=== PATIENT | female | born 1975 | race Caucasian/White ===

== ENCOUNTER 2016-05-24 09:09 | Emergency (ER) | payer OTHER ==
[~2016-05-24] VITALS: Ht 172.7 cm; Wt 72.6 kg
[~2016-05-24 09:09] MED LIST: MOTRIN600 MG PO; NORCO 5-325 TA1 EACH PO; PROTONIX 40MG T40 MG PO; TRAZODONE50 MG PO; VICODIN5-300 PO; XANAX0.5 MG PO
--- NOTE | 2016-05-24 10:13 | ED HAND/WRIST INJURY COMPLAINT ---
History of Present Illness General Chief Complaint: Hand or Wrist Injury Stated Complaint: R WRIST INJURY Source: patient Exam Limitations: no limitations Vital Signs & Intake/Output Vital Signs & Intake/Output Vital Signs Date Time Temp Pulse Resp B/P Pulse O2 O2 Flow FiO2 Ox Delivery Rate 05/24 1100 96 Room Air 05/24 0921 98.7 78 18 144/90 98 Room Air Allergies Coded Allergies: No Known Allergies (01/29/16) Reconcile Medications No Known Home Medications Triage Note: PT STATES THAT WHILE DOING DISHES LAST PM SHE TURNED HER WRIST AND HAS BEEN HAVING SHARP APIN SINCE. PT REFUSES MEDS AT TRIAGE Triage Nurses Notes Reviewed? yes : No Patient currently breastfeeds: No HPI: Patient presents for evaluation of a right wrist injury that occurred yesterday at home while wiping her counter. It is a constant throbbing pain gets worse with movement. Apparent soft tissue swelling or ecchymoses. Patient has yet to try any medications for this. She also feels a generalized numbness and tingling to the right hand. Patient has a distant history of carpal tunnel surgery of the left hand. The patient contacted her orthopedic doctor's office and was told to go to the emergency department. Past History Travel History Traveled to [facility] past 21 day No Medical History Any Pertinent Medical History? 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 grandmother, , Age 60+; Cause: Myocardial infarction. Hx Contributory? No Review of Systems Review of Systems Constitutional: Reports: no symptoms. EENTM: Reports: no symptoms. Respiratory: Reports: no symptoms. Cardiovascular: Reports: no symptoms. GI: Reports: no symptoms. Genitourinary: Reports: no symptoms. Musculoskeletal: Reports: see HPI. Skin: Reports: no symptoms. Neurological/Psychological: Reports: no symptoms. Hematologic/Endocrine: Reports: no symptoms. Immunologic/Allergic: Reports: no symptoms. All Other Systems: Reviewed and Negative Physical Exam Physical Exam Hand Left: normal inspection Hand Right: SEE BELOW Comments: Gen.: Well-nourished, well-developed, no acute respiratory distress. Head: Normocephalic, atraumatic. Eyes: Normal inspection bilaterally Ears: Normal inspection bilaterally Nose: Normal inspection, nasal cannula in place Throat/mouth : Moist mucosa Neck: Supple, full range of motion, no goiter Heart: Regular rate and rhythm Lungs: Quiet respirations Back: Normal range of motion Extremities: Right hand and wrist: No soft tissue swelling ecchymoses or deformity, sensation intact to light touch, good capillary refill to all fingertips, tenderness over the distal wrist (ulnar aspect), decreased range of motion of the wrist due to pain. No apparent abrasions. Neurologic: Cranial nerves grossly intact, speech is clear Skin: warm and dry Psychiatric: Calm, cooperative, no apparent delusions or hallucinations Progress Differential Diagnosis: contusion, dislocation, fracture, sprain Plan of Care: Orders Procedure Date/time Status Durable Medical Equipment 05/24 1158 Active Diagnostic Imaging: Discussed w/RAD: Radiology Read. Radiology Impression: PATIENT: CHRISTIANA DILLARD PRESENT AGE: 40 PATIENT ACCOUNT NO: [id number] : 77 LOCATION: [facility] ORDERING PHYSICIAN: CHAD GALINDO MD SERVICE DATE: 05/24/16-1012 EXAM TYPE: RAD - XRY-WRIST COMPLETE-RIGHT EXAMINATION: XR WRIST, RIGHT CLINICAL INFORMATION : Right wrist pain after cleaning. COMPARISON: None TECHNIQUE: AP, lateral, oblique, and scaphoid views of the right wrist. FINDINGS: No acute fracture or malalignment. There is a small 3 mm ossific density at the tibial and styloid which may correspond to an old avulsion fracture of the tibial and styloid or a loose body. An accessory ossicle is also possible. There is a separate 2 mm ossific density at the dorsal aspect of the triquetrum which could also represent a prior avulsion injury. Soft tissues are normal. Joint spaces are well-preserved. Bone mineralization is normal. IMPRESSION: 1. No acute osseous abnormalities. 2. Small ossific densities at the tip of the ulnar styloid and dorsal margin of the triquetrum which could correspond to old avulsion injuries, accessory ossicles, or small loose bodies. DICTATED BY: GIL LYNN MD DATE/ TIME DICTATED:05/24/161120 MEDICAL SECRETARY:SPENCER DATE/TIME TRANSCRIBED: 05/24/161120 CONFIDENTIAL, DO NOT COPY WITHOUT APPROPRIATE AUTHORIZATION. < Electronically signed in Other Vendor System> SIGNED BY: GIL LYNN MD 05/24/161125 Departure Departure Disposition: HOME OR SELF CARE Condition: Stable Clinical Impression Primary Impression: Right wrist sprain Qualifiers: Encounter type: initial encounter Qualified Code: S63.501A - Unspecified sprain of right wrist, initial encounter Referrals: PATIENT HAS NO PRIMARY CARE DR (PCP/Family) MILDRED HUERTAS,GERMAN Pineda Additional Instructions: Wrist splint as needed. Naprosyn as prescribed for pain. Follow-up with your landscape specialist in 7-10 days if not improved. Return if any concerns or sudden worsening. Please note that there might be incidental findings in your evaluation that are unrelated to the current emergency department visit. Please notify your primary care doctor about this emergency department visit in order to obtain and review all of the testing performed so that these incidental findings can be monitored as needed. If you had an x-ray performed, please understand that some fractures may not be seen on the initial set of x-rays. If your symptoms persist you might need a repeat set of x-rays to check for such a fracture. If you had a laceration evaluated, please understand that foreign bodies such as glass or wood may not be visible to the naked eye or on plain x-rays. If the wound becomes red, swollen, increasingly more painful or if there is any drainage from the wound, please have it reevaluated by a physician for the possibility of a retained foreign body. Thank you for choosing the [facility] Emergency Department for your care. It was a pleasure to serve you today. Chad Galindo M.D. [facility] Departure Forms: Customer Survey General Discharge Information Prescriptions: Current Visit Scripts Naproxen (Naprosyn) 1 TAB PO BID #[id number] TAB
--- NOTE | 2016-05-24 11:26 | RADIOLOGY REPORT ---
EXAMINATION: XR WRIST, RIGHT CLINICAL INFORMATION: Right wrist pain after cleaning. COMPARISON: None TECHNIQUE: AP, lateral, oblique, and scaphoid views of the right wrist. FINDINGS: No acute fracture or malalignment. There is a small 3 mm ossific density at the tibial and styloid which may correspond to an old avulsion fracture of the tibial and styloid or a loose body. An accessory ossicle is also possible. There is a separate 2 mm ossific density at the dorsal aspect of the triquetrum which could also represent a prior avulsion injury. Soft tissues are normal. Joint spaces are well-preserved. Bone mineralization is normal. IMPRESSION: 1. No acute osseous abnormalities. 2. Small ossific densities at the tip of the ulnar styloid and dorsal margin of the triquetrum which could correspond to old avulsion injuries, accessory ossicles, or small loose bodies.
[2016-05-24] MEDS ORDERED: NAPROSYN500 M1 PO (12:12)
[2016-05-24 12:17] VITALS: BP 124/79
== END 2016-05-24 12:22 ==
LOC: ERH 09:09
DX: S63.501A Unspecified sprain of right wrist, initial encounter (principal); X58.XXXA Exposure to other specified factors, initial encounter; Y93.G1 Activity, food preparation and clean up
CPT/HCPCS: 73110-RT